=== PATIENT | female | born 1955 | race Hispanic/Latino ===

== ENCOUNTER 2018-12-12 06:51 | Day surgery (SDC) | payer MEDICARE ==
[~2018-12-12] VITALS: Ht 172.7 cm; Wt 94.3 kg
[~2018-12-12 06:51] MED LIST: SODIUM CHLORIDE 0.9% 1000ML 1,000 ML IV ONE
[2018-12-12 07:40] VITALS: BP 134/73
[2018-12-12] MEDS ORDERED: DICL2100G TP (08:09)
[2018-12-12] MEDS ORDERED: GABA-533 PO (08:09)
[2018-12-12] MEDS ORDERED: BUPR-47 PO (08:09)
[2018-12-12] MEDS ORDERED: HYDR-4064 PO (08:09)
[2018-12-12] MEDS ORDERED: FLUT50BL IH (08:09)
[2018-12-12] MEDS ORDERED: ISOS20TA7 PO (08:09)
[2018-12-12] MEDS ORDERED: CLON1TAB23 PO (08:09)
[2018-12-12] MEDS ORDERED: ATOR10TA69 PO (08:09)
[2018-12-12] MEDS ORDERED: RANO10003 PO (08:09)
[2018-12-12] MEDS ORDERED: ASPI-555 PO (08:09)
[2018-12-12] MEDS ORDERED: PROPOFOL 10 MG/ML 20ML VIAL IV ONE (08:36)
[2018-12-12 08:55] VITALS: BP 103/61
[2018-12-12 09:00] VITALS: BP 112/68
[2018-12-12 09:05] VITALS: BP 107/53
[2018-12-12 09:15] VITALS: BP 119/78
--- NOTE | 2018-12-12 09:30 | NUR ---
PT ARRIVED TO GI RECOVERY STABLE NO C/O OF BACK PAIN. VITALS STABLE NO DISTRESS. PT ABLE TO SIT AT BEDSIDE AND TOLERATE FLUIDS. POST CARE INSTRUCTIONS AND REPORT GIVEN TO SON AND PT, BOTH VERBALIZED UNDERSTANDING. PT DRESSED WITH SOME ASSISTANCE , TAKEN OUT TO CAR IN A WHEELCHAIR, DRIVEN HOME BY SON.
== END 2018-12-12 09:30 | disposition home or self-care (01) ==
LOC: ENDO 06:51 → DAH 06:51 → ENDO 09:30
PROVIDERS: ATTEND Internal Medicine
DX: K29.50 Unspecified chronic gastritis without bleeding (principal); B96.81 Helicobacter pylori [H. pylori] as the cause of diseases classified elsewhere; K57.10 Diverticulosis of small intestine without perforation or abscess without bleeding; K31.89 Other diseases of stomach and duodenum; K44.9 Diaphragmatic hernia without obstruction or gangrene; K22.8 Other specified diseases of esophagus; Z68.35 Body mass index [BMI] 35.0-35.9, adult; E78.5 Hyperlipidemia, unspecified; E66.9 Obesity, unspecified; I10 Essential (primary) hypertension; K76.0 Fatty (change of) liver, not elsewhere classified; F32.9 Major depressive disorder, single episode, unspecified; Z98.890 Other specified postprocedural states; Z79.899 Other long term (current) drug therapy; Z79.01 Long term (current) use of anticoagulants; I25.10 Atherosclerotic heart disease of native coronary artery without angina pectoris
CPT/HCPCS: 43239; 88305; A4606; J2704; J7030